=== PATIENT | male | born 1990 | race American Indian/Alaskan Native ===

== ENCOUNTER 2019-06-21 11:39 | Emergency (ER) | payer SELFPAY ==
--- NOTE | 2019-06-21 12:10 | Event Note ---
ED Screening Note Date of service: 06/21/19 Time: 12:06 ED Screening Note: 28 y/o male comes in for left lower back pain that radiates down his left leg yesterday after help moving his mother. Denies any falls. No urinary incontinence or bowel incontinence. This initial assessment/diagnostic orders/clinical plan/treatment(s) is/are subject to change based on patients health status, clinical progression and re- assessment by fellow clinical providers in the ED. Further treatment and workup at subsequent clinical providers discretion. Patient/guardian urged not to elope from the ED as their condition may be serious if not clinically assessed and managed. Initial orders include:
--- NOTE | 2019-06-21 12:56 | XRay Report ---
XR spine lumbosacral 2-3V INDICATION / CLINICAL INFORMATION: lower back pain with radiation down left leg. COMPARISON: None available. FINDINGS: BONES/JOINT(S): No acute vertebral fracture. No significant degenerative changes. Grade 1 spondylolis thesis of L5 on S1 due to chronic bilateral L5 pars defects. Remaining alignment is normal. SOFT TISSUES: No significant abnormality. ADDITIONAL FINDINGS: None. Signer Name: Jordan Rome MD Signed: 06/21/2019 12:52 PM Workstation Name: [id number]
[2019-06-21] MEDS ORDERED: IBUPROFEN 800 MG TAB PO ONE (13:22)
--- NOTE | 2019-06-21 13:22 | Emergency Department Report ---
ED Back Pain/Injury HPI - General Chief Complaint: Back Pain/Injury Stated Complaint: LOWER LT SIDE PAIN/LEG NUMB Time Seen by Provider: 06/21/19 12:05 Source: patient Limitations: No Limitations - History of Present Illness Initial Comments: 28 YO AA MALE WHO LAST NIGHT WHEN HE WAS HELPING HIS MOTHER TRANSFER DEVELOPED SEVERE LEFT SIDED BACK SPASM. TOOK MOTRIN WITH NO RELIEF. COMES TO ER TODAY FOR EVAL. NO DYSURIA. NO FEVER. NO ABD PAIN. AMBULATORY. MD Complaint: back pain -: Sudden, days(s) Similar Symptoms Previously: No Place: home Radiation: none Severity: moderate Quality: aching Improves With: immobilization Worsens With: movement Associated Symptoms: denies other symptoms - Related Data Previous Rx's Medication Instructions Recorded Last Taken Type Cyclobenzaprine [Flexeril] 10 mg PO TID PRN #10 tablet 06/21/19 Unknown Rx predniSONE [Deltasone] 20 mg PO DAILY #5 tablet 06/21/19 Unknown Rx Allergies Allergy/AdvReac Type Severity Reaction Status Date / Time No Known Allergies Allergy Verified 06/21/19 11:52 ED Review of Systems ROS: Stated complaint: LOWER LT SIDE PAIN/LEG NUMB Other details as noted in HPI Comment: All other systems reviewed and negative ED Past Medical Hx - Past Medical History HIV Surgical history: no surgical history Family history: no significant family history - Social History Smoking Status: Never Smoker Alcohol use: rarely Drug use: none ED Back Pain Physical Exam - Exam General: Vital signs noted. No distress. Alert and acting appropriately. Back/Abdomen: Yes Straight Leg Raise Pain, No Abdominal Tenderness, No Perithoracic Tenderness, No Perilumbar Tenderness, No Sacroiliac Tenderness, No Flank Tenderness Neuro: Yes Normal Sensation, Yes Normal DTR's, Yes Normal Gait, No Motor Weakness ED Course Vital Signs 06/21/19 11:50 Temperature 97.6 F Pulse Rate 92 H Respiratory 16 Rate Blood Pressure 124/83 O2 Sat by Pulse 99 Oximetry Ed Back Pain Tests - Tests Tests: Normal X Rays ED Medical Decision Making - Radiology Data Radiology results: report reviewed, image reviewed - Medical Decision Making MEDICATED IN ER FOR PAIN NO URINARY SYMPTOMS PAIN INC WITH MOVEMENT AND DEC WITH IMMOBILIZATION NO FEVER OR CHILLS NO SYMPTOMS CAUDA EQUINA XRAY NEG DC HOME WITH DC PLAN OF CARE AND ORTHO/PCP FOLLOW UP Vital Signs 06/21/19 11:50 Temperature 97.6 F Pulse Rate 92 H Respiratory 16 Rate Blood Pressure 124/83 O2 Sat by Pulse 99 Oximetry - Differential Diagnosis MUSCLE SPASM Critical care attestation.: If time is entered above; I have spent that time in minutes in the direct care of this critically ill patient, excluding procedure time. ED Disposition Clinical Impression: Sciatica, Muscle spasm Disposition: DC-01 TO HOME OR SELFCARE Is pt being admited?: No Does the pt Need Aspirin: No Condition: Stable Instructions: Lumbar Radiculopathy (ED) Additional Instructions: MEDS ORDERED TODAY FOLLOW UP WITH PCP OR DR OSEGUERA (ORTHO MD) IF PERSISTS MOTRIN WITH FOOD IS OK TO TAKE WITH THESE MEDS- IT WILL HELP WITH THE PAIN/INFLAMMATION DO NOT DRIVE WHILE TAKING THE FLEXERIL WARM COMPRESSES TO BACK WILL HELP XRAY NORMAL Prescriptions: predniSONE [Deltasone] 20 mg PO DAILY #5 tablet Cyclobenzaprine [Flexeril] 10 mg PO TID PRN #10 tablet PRN Reason: Muscle Spasm Referrals: NENA OSEGUERA MD [Staff Physician] - 3-5 Days Time of Disposition: 13:25
[2019-06-21] MEDS ORDERED: KETOROLAC 60 MG/2 ML INJ IM ONE (13:24)
[2019-06-21] MEDS ORDERED: dexAMETHasone 4 MG/ML VIAL IM ONE (13:24)
[2019-06-21 14:47] VITALS: BP 137/72
== END 2019-06-21 14:20 | disposition home or self-care (01) ==
LOC: ED 11:39
DX: M54.42 Lumbago with sciatica, left side (principal); Z79.899 Other long term (current) drug therapy
CPT/HCPCS: 72100; 96372; 99283; J1100; J1885

== ENCOUNTER 2019-09-20 14:51 | Emergency (ER) | payer SELFPAY ==
[2019-09-20 15:48] VITALS: BP 132/82
--- NOTE | 2019-09-20 15:50 | Event Note ---
ED Screening Note Date of service: 09/20/19 Time: 15:46 ED Screening Note: This is a 29 y.o. M. that presents to the ER with left testicle enlargement and pain for 2 days. - penile discharge PMH of HIV This initial assessment/diagnostic orders/clinical plan/treatment(s) is/are subject to change based on patients health status, clinical progression and re- assessment by fellow clinical providers in the ED. Further treatment and workup at subsequent clinical providers discretion. Patient/guardian urged not to elope from the ED as their condition may be serious if not clinically assessed and managed. Initial orders include: Testicular US UA
--- NOTE | 2019-09-20 16:54 | Ultrasound Report ---
ULTRASOUND SCROTUM INDICATION / CLINICAL INFORMATION: left testicular enlargement and swelling. COMPARISON: None available. FINDINGS -- RIGHT TESTIS: Size = 4.4 x 1.7 x 2.9 cm. - Appearance: No significant abnormality. - Cyst or Mass: None. - Color Doppler Flow: No significant abnormality. EPIDIDYMIS: No significant abnormality. HYDROCELE: None. VARICOCELE: None demonstrated. FINDINGS -- LEFT TESTIS: Size = 4.3 x 2.6 x 3.2 cm. - Appearance: No significant abnormality. - Cyst or Mass: None. - Color Doppler Flow: No significant abnormality. EPIDIDYMIS: Mildly enlarged and hypervascular compared with the right HYDROCELE: None. VARICOCELE: None demonstrated. ADDITIONAL FINDINGS: None. IMPRESS. ION: 1. Findings suggesting left-sided epididymitis. 2. No acute abnormality of either testicle. Signer Name: Jordan Rome MD Signed: 09/20/2019 4:50 PM Workstation Name: [id number]
[2019-09-20 17:15] LABS: Bacteria,Urine 1+ /HPF (Negative); Bilirubin,Urine NEG (Negative); Blood,Urine MOD (Negative); Color,Urine Yellow (Yellow); Mucus,Urine FEW /HPF; Urobilinogen,Urine < 2.0 mg/dL (<2.0)
[2019-09-20 17:16] LABS: WBC,Urine > 182.0 /HPF (0.0-6.0)
[2019-09-20] MEDS ORDERED: LIDOCAINE-MPF (1%) 10 MG/1 ML VIAL 5 ML INFILTRATI ONE (19:07)
[2019-09-20] MEDS ORDERED: AZITHROMYCIN 250 MG TAB PO ONE (19:07)
--- NOTE | 2019-09-20 20:00 | Emergency Department Report ---
ED Male HPI - General Chief complaint: Urogenital-Male Stated complaint: TESTICLE PAIN Time Seen by Provider: 09/20/19 15:46 Source: patient Mode of arrival: Ambulatory Limitations: No Limitations - History of Present Illness Initial comments: This is a 29 y.o. M. that presents to the ER with left testicle enlargement and pain for 2 days. penile discharge. PMH of HIV. Symptoms are exacerbated by palpation and movment. symptoms are relieved by rest and splint support. There are no open sores or lesions. no fever or chills no n/v. MD Complaint: testicle pain, testicle swelling Onset/Timin -: days(s) Location: left testicle Radiation: none Severity scale (0 -10): 4 Quality: aching Consistency: constant Improves with: none Worsens with: palpation, movement swelling. denies: mass, rash, urinary retention, blood in urine, dysuria, fever, nausea/vomiting, incontinence - Related Data Sexually active: Yes Previous Rx's Medication Instructions Recorded Last Taken Type Cyclobenzaprine [Flexeril] 10 mg PO TID PRN #10 tablet 06/21/19 Unknown Rx predniSONE [Deltasone] 20 mg PO DAILY #5 tablet 06/21/19 Unknown Rx Doxycycline Hyclate [Doxycycline 100 mg PO BID 10 Days #20 tab 09/20/19 Unknown Rx Hyclate TAB] Allergies Allergy/AdvReac Type Severity Reaction Status Date / Time No Known Allergies Allergy Verified 06/21/19 11:52 ED Review of Systems ROS: Stated complaint: TESTICLE PAIN Other details as noted in HPI Constitutional: denies: chills, fever Eyes: denies: eye pain, eye discharge, vision change ENT: denies: ear pain, throat pain Respiratory: denies: cough, shortness of breath, wheezing Cardiovascular: denies: chest pain, palpitations Endocrine: no symptoms reported Gastrointestinal: denies: abdominal pain, nausea, vomiting, diarrhea, melena Genitourinary: testicular pain. denies: urgency, dysuria, frequency, hematuria, testicular mass Musculoskeletal: denies: back pain, joint swelling, arthralgia Skin: denies: rash, lesions Neurological: denies: headache, weakness, paresthesias Psychiatric: denies: anxiety, depression Hematological/Lymphatic: denies: easy bleeding, easy bruising ED Past Medical Hx - Past Medical History Previous Medical History?: Yes Hx HIV: Yes Additional medical history: HIV - Surgical History Past Surgical History?: No - Social History Smoking Status: Current Every Day Smoker Substance Use Type: None - Medications Home Medications: Home Medications Medication Instructions Recorded Confirmed Last Taken Type Cyclobenzaprine [Flexeril] 10 mg PO TID PRN #10 tablet 06/21/19 Unknown Rx predniSONE [Deltasone] 20 mg PO DAILY #5 tablet 06/21/19 Unknown Rx Doxycycline Hyclate [Doxycycline 100 mg PO BID 10 Days #20 tab 09/20/19 Unknown Rx Hyclate TAB] ED Physical Exam - General Limitations: No Limitations General appearance: alert, in no apparent distress - Head Head exam: Present: atraumatic, normocephalic - Eye Eye exam: Present: normal appearance, PERRL, EOMI Pupils: Present: normal accommodation - ENT ENT exam: Present: mucous membranes moist - Neck Neck exam: Present: normal inspection, full ROM. Absent: tenderness - Respiratory Respiratory exam: Absent: wheezes, stridor, chest wall tenderness - Cardiovascular Cardiovascular Exam: Present: regular rate, normal rhythm, normal heart sounds. Absent: systolic murmur, diastolic murmur, rubs, gallop - GI/Abdominal GI/Abdominal exam: Present: soft, normal bowel sounds. Absent: distended, tenderness, guarding, rebound, rigid, bruit, hernia - Rectal Rectal exam: Present: deferred - exam: Present: testicular tenderness (left testical, epididymis tenderness ), circumcision. Absent: urethral discharge, scrotal swelling, vertical t esticular lie External exam: Present: normal external exam. Absent: erythema, swelling, lesions, lacerations, ecchymosis, bleeding - Extremities Exam Extremities exam: Present: normal inspection, full ROM. Absent: tenderness - Back Exam Back exam: Present: normal inspection, full ROM. Absent: tenderness, CVA tenderness (R), CVA tenderness (L), rash noted - Neurological Exam Neurological exam: Present: alert, oriented X3, CN II-XII intact, normal gait - Psychiatric Psychiatric exam: Present: normal affect, normal mood - Skin Skin exam: Present: warm, dry, intact, normal color. Absent: rash ED Course Vital Signs 09/20/19 15:47 Temperature 97.7 F Pulse Rate 92 H Respiratory 16 Rate Blood Pressure 132/82 O2 Sat by Pulse 100 Oximetry ED Medical Decision Making - Radiology Data Radiology results: report reviewed, image reviewed Ordering Physician: PETER BARRIENTOS Date of Service: 09/20/19 Procedure(s): US testicular doppler comp Accession Number(s): [id number] cc: PETER BARRIENTOS ULTRASOUND SCROTUM INDICATION / CLINICAL INFORMATION: left testicular enlargement and swelling. COMPARISON: None available. FINDINGS -- RIGHT TESTIS: Size = 4.4 x 1.7 x 2.9 cm. - Appearance: No significant abnormality. - Cyst or Mass: None. - Color Doppler Flow: No significant abnormality. EPIDIDYMIS: No significant abnormality. HYDROCELE: None. VARICOCELE: None demonstrated. FINDINGS -- LEFT TESTIS: Size = 4.3 x 2.6 x 3.2 cm. - Appearance: No significant abnormality. - Cyst or Mass: None. - Color Doppler Flow: No significant abnormality. EPIDIDYMIS: Mildly enlarged and hypervascular compared with the right HYDROCELE: None. VARICOCELE: None demonstrated. ADDITIONAL FINDINGS: None. IMPRESS. ION: 1. Findings suggesting left-sided epididymitis. 2. No acute abnormality of either testicle. Signer Name: Jordan Rome MD Signed: 09/20/2019 4:50 PM Workstation Name: [id number] Transcribed By: JAMILAH Dictated By: Jordan Rome MD Electronically Authenticated By: Jordan Rome MD Signed Date/Time: 09/20/191649 DD/ 1649 TD/TT: - Medical Decision Making this is epididymitis plan tx for STI, dc to home with rx for doxycycline , pt will follow up with primary care doctor in 2-3 days. pt verbalized agreement and understanding of same. Critical care attestation.: If time is entered above; I have spent that time in minutes in the direct care of this critically ill patient, excluding procedure time. ED Disposition Clinical Impression: Epididymitis Disposition: DC-01 TO HOME OR SELFCARE Is pt being admited?: No Does the pt Need Aspirin: No Condition: Stable Instructions: Epididymitis (ED) Prescriptions: Doxycycline Hyclate [Doxycycline Hyclate TAB] 100 mg PO BID 10 Days #20 tab Referrals: NATALIA MYERS MD [Primary Care Provider] - 3-5 Days Forms: STI Treatment and Prevention Time of Disposition: 20:14
== END 2019-09-20 20:20 | disposition home or self-care (01) ==
LOC: ED 14:51
DX: N45.1 Epididymitis (principal); F17.200 Nicotine dependence, unspecified, uncomplicated
CPT/HCPCS: 81001; 93975; 96372; 99284; J0696

== ENCOUNTER 2020-09-28 09:20 | Emergency (ER) | payer SELFPAY ==
[2020-09-28 09:36] VITALS: BP 143/95
--- NOTE | 2020-09-28 11:33 | Ultrasound Report ---
ULTRASOUND SCROTUM INDICATION: right testicular swelling and pain. COMPARISON Ultrasound 09/20/2019. FINDINGS -- RIGHT TESTIS: Size: 4.1 x 2.5 x 2.4 cm. Echotexture: Normal. Color Doppler Flow: Normal. Lesions: None. EPIDIDYMIS: Size: Mildly enlarged measuring 2 cm. Echotexture: Normal. Color Doppler Flow: Increase d Lesions: None. Hydrocele: There is a new moderate-sized complex right hydrocele. Varicocele: None. Additional Findings: None. FINDINGS -- LEFT TESTIS: Size: 4.4 x 1.9 x 2.8 cm. Echotexture: Normal. Color Doppler Flow: Normal. Lesions: None. EPIDIDYMIS: Size: Normal. Echotexture: Normal. Color Doppler Flow: Normal. Lesions: None. Hydrocele: None. Varicocele: None. Additional Findings: None. IMPRESSION: 1. Previously seen inflammatory change of the left epididymis has resolved. 2. There is new enlargement of and hyperemia of the right epididymis consistent with epididymitis. Th ere is a new moderate somewhat complex right hydrocele which may be reactive related to the epididyma l inflammation. Signer Name: Lamin Oliveros MD Signed: 09/28/2020 11:29 AM Workstation Name: [id number]
[2020-09-28] MEDS ORDERED: AZITHROMYCIN 250 MG TAB PO ONE (12:04)
[2020-09-28] MEDS ORDERED: LIDOCAINE-MPF (1%) 10 MG/1 ML VIAL 5 ML INFILTRATI ONE (12:04)
--- NOTE | 2020-09-28 12:07 | Emergency Department Report ---
HPI - General Chief Complaint: Urogenital-Male Time Seen by Provider: 09/28/20 11:54 - HPI HPI: This is a 30-year-old -[place] male who presents to the emergency department with the complaint of a 2-day history of right-sided scrotal pain and swelling. Patient has a past medical history of HIV. He denies any fever, nausea, vomiting, abdominal pain, back pain. He has not taken anything for his symptoms prior to presentation. No recent travel or sick contacts at home. The patient was seen for the same set of symptoms in September of last year and was found to have left-sided epididymitis at that time. He denies having a primary care physician or urologist. ED Past Medical Hx - Past Medical History Previous Medical History?: Yes Hx HIV: Yes Additional medical history: HIV - Surgical History Past Surgical History?: No - Social History Smoking Status: Current Every Day Smoker Substance Use Type: Alcohol - Medications Home Medications: Home Medications Medication Instructions Recorded Confirmed Last Taken Type Cyclobenzaprine [Flexeril] 10 mg PO TID PRN #10 tablet 06/21/19 Unknown Rx predniSONE [Deltasone] 20 mg PO DAILY #5 tablet 06/21/19 Unknown Rx Doxycycline Hyclate [Doxycycline 100 mg PO BID 10 Days #20 tab 09/20/19 Unknown Rx Hyclate TAB] Ciprofloxacin HCl [Ciprofloxacin 500 mg PO Q12HR #20 tab 09/28/20 Unknown Rx TAB] HYDROcodone/APAP 5-325 [[place] 1 each PO Q6HR PRN #10 tablet 09/28/20 Unknown Rx 5/325] ED Review of Systems ROS: Stated complaint: GROIN PAIN Other details as noted in HPI Comment: All other systems reviewed and negative Constitutional: denies: chills, fever Eyes: denies: eye pain, vision change ENT: denies: ear pain, throat pain Respiratory: denies: cough, shortness of breath Cardiovascular: denies: chest pain, palpitations Gastrointestinal: denies: abdominal pain, vomiting Genitourinary: testicular pain. denies: dysuria Musculoskeletal: denies: back pain, arthralgia Skin: denies: rash, lesions Neurological: denies: headache, weakness Physical Exam - Physical Exam Vital Signs: Vital Signs 09/28/20 09/28/20 09:34 09:35 Temperature 97.8 F Pulse Rate 99 H Respiratory 20 Rate Blood Pressure 143/95 [Right] O2 Sat by Pulse 100 Oximetry Physical Exam: GENERAL: The patient is well-developed well-nourished. HENT: Normocephalic. Atraumatic. Patient has moist mucous membranes. EYES: Extraocular motions are intact. NECK: Supple. Trachea is midline. CHEST/LUNGS: Clear to auscultation. There is no respiratory distress noted. HEART/CARDIOVASCULAR: Regular. There is no tachycardia. There is no murmur. ABDOMEN: Abdomen is soft, nontender. Patient has normal bowel sounds. SKIN: Skin is warm and dry. NEURO: The patient is awake, alert, and oriented. The patient is cooperative. Normal speech. MUSCULOSKELETAL: There is no tenderness or deformity. There is no limitation range of motion. : The right side of the scrotum and right testicle appears swollen/enlarged. There is right-sided scrotal and testicular tenderness to palpation. No rash or lesions seen. ED Course Vital Signs 09/28/20 09/28/20 09:34 09:35 Temperature 97.8 F Pulse Rate 99 H Respiratory 20 Rate Blood Pressure 143/95 [Right] O2 Sat by Pulse 100 Oximetry ED Medical Decision Making - Radiology Data Radiology results: report reviewed ULTRASOUND SCROTUM INDICATION: right testicular swelling and pain. COMPARISON Ultrasound 09/20/2019. FINDINGS -- RIGHT TESTIS: Size: 4.1 x 2.5 x 2.4 cm. Echotexture: Normal. Color Doppler Flow: Normal. Lesions: None. EPIDIDYMIS: Size: Mildly enlarged measuring 2 cm. Echotexture: Normal. Color Doppler Flow: Increased Lesions: None. Hydrocele: There is a new moderate-sized complex right hydrocele. Varicocele: None. Additional Findings: None. FINDINGS -- LEFT TESTIS: Size: 4.4 x 1.9 x 2.8 cm. Echotexture: Normal. Color Doppler Flow: Normal. Lesions: None. EPIDIDYMIS: Size: Normal. Echotexture: Normal. Color Doppler Flow: Normal. Lesions: None. Hydrocele: None. Varicocele: None. Additional Findings: None. IMPRESSION: 1. Previously seen inflammatory change of the left epididymis has resolved. 2. There is new enlargement of and hyperemia of the right epididymis consistent with epididymitis. There is a new moderate somewhat complex right hydrocele which may be reactive related to the epididymal inflammation. - Medical Decision Making This patient presents with a 2-day history of right-sided scrotal and testicular pain and swelling. Testicular ultrasound does not show any evidence of torsion, but does show right-sided epididymitis with a moderate complex hydrocele. The patient does admit to engaging in anal intercourse. Patient was given Rocephin 500 mg IM to treat/cover for possible gonorrhea infection. The patient was given 1 g of azithromycin to treat for possible chlamydial infection. The patient will go on a 10-day course of Cipro, a fluoroquinolone, to treat for an infection of possible enteric organism secondary to his history of engaging in anal intercourse. Vital signs have been reassuring throughout his ED course including being afebrile. He has been instructed to follow-up with a primary care physician and has been given an outpatient referral for urology. Critical Care Time: No Critical care attestation.: If time is entered above; I have spent that time in minutes in the direct care of this critically ill patient, excluding procedure time. ED Disposition Clinical Impression: Epididymitis, Epididymal cyst Disposition: TO HOME OR SELFCARE Is pt being admited?: No Condition: Stable Instructions: Epididymitis, Epididymitis (ED) Additional Instructions: Please follow-up with a primary care physician in the next few days. I have given you a referral for a local urologist, Dr. Cunha, to follow-up regarding your epididymitis, epididymal cyst, and the scrotal pain and swelling. Take the antibiotics as prescribed. Please avoid any sexual intercourse or activities until you have completed the antibiotics and followed up with Urology. You have been prescribed a medication that is sedating and therefore should not be taken prior to driving, working, and responsible for children and in no way should be mixed with alcohol of any quantity. Return to the emergency department with any worsening of your symptoms, new or concerning symptoms not addressed during this current emergency department visit, or with any acute distress. Prescriptions: Ciprofloxacin HCl [Ciprofloxacin TAB] 500 mg PO Q12HR #20 tab HYDROcodone/APAP 5-325 [[place] 5/325] 1 each PO Q6HR PRN #10 tablet PRN Reason: Pain Referrals: PRIMARY CARE, [Primary Care Provider] - 2-3 Days LINO CUNHA MD [Staff Physician] - 2-3 Days Forms: STI Treatment and Prevention Time of Disposition: 12:46
--- NOTE | 2020-09-28 19:00 | Event Note ---
ED Screening Note Date of service: 09/28/20 Time: 10:12 ED Screening Note: This initial assessment/diagnostic orders/clinical plan/treatment(s) is/are subject to change based on patients health status, clinical progression and re- assessment by fellow clinical providers in the ED. Further treatment and workup at subsequent clinical providers discretion. Patient/guardian urged not to elope from the ED as their condition may be serious if not clinically assessed and managed. Initial orders include: 30-year-old male complaining of right scrotal swelling and pain x2 days. He denies any urinary symptoms he denies any penile discharge. He does have a history of HIV and states that he is compliant with taking his antivirals.
== END 2020-09-28 13:11 | disposition home or self-care (01) ==
LOC: ED 09:20
DX: N50.3 Cyst of epididymis (principal); N45.1 Epididymitis; F17.200 Nicotine dependence, unspecified, uncomplicated; Z79.899 Other long term (current) drug therapy; Z21 Asymptomatic human immunodeficiency virus [HIV] infection status
CPT/HCPCS: 93975; 96372; 99283; J0696

== ENCOUNTER 2021-08-13 10:56 | Emergency (ER) | payer SELFPAY ==
[2021-08-13 11:11] VITALS: BP 145/93
--- NOTE | 2021-08-13 11:25 | Emergency Department Report ---
ED General Adult HPI - General Chief complaint: Skin Rash Stated complaint: RIGHT EYE SWELLING Time Seen by Provider: 08/13/21 11:13 Source: patient Mode of arrival: Ambulatory Limitations: No Limitations - History of Present Illness Initial comments: This pleasant 30-year-old male who presents emergency department chief complaint of a itchy rash on the right side of his nose, forehead, temporal area and parietal scalp that has been present over the past few days. He has past medical history of HIV and is currently on antiretroviral medications. He states he has some clear drainage from the right eye and some mild irritation. He denies any associated fever, chills, night sweats, headache, dizziness, blurry vision, nausea,, diarrhea, chest pain, shortness of breath, weakness or any other associated symptoms. - Related Data Previous Rx's Medication Instructions Recorded Last Taken Type Cyclobenzaprine [Flexeril] 10 mg PO TID PRN #10 tablet 06/21/19 Unknown Rx predniSONE [Deltasone] 20 mg PO DAILY #5 tablet 06/21/19 Unknown Rx Doxycycline Hyclate [Doxycycline 100 mg PO BID 10 Days #20 tab 09/20/19 Unknown Rx Hyclate TAB] Ciprofloxacin HCl [Ciprofloxacin 500 mg PO Q12HR #20 tab 09/28/20 Unknown Rx TAB] HYDROcodone/APAP 5-325 [[place] 1 each PO Q6HR PRN #10 tablet 09/28/20 Unknown Rx 5/325] Ganciclovir [Zirgan 0.15%] 1 drop OP 5XD #1 gel..gram. 08/13/21 Unknown Rx Valacyclovir HCl [Valtrex] 1,000 mg PO TID #30 tablet 08/13/21 Unknown Rx predniSONE [Deltasone] 50 mg PO QDAY #5 tab 08/13/21 Unknown Rx Allergies Allergy/AdvReac Type Severity Reaction Status Date / Time No Known Allergies Allergy Verified 06/21/19 11:52 ED Review of Systems ROS: Stated complaint: RIGHT EYE SWELLING Other details as noted in HPI Comment: All other systems reviewed and negative Constitutional: denies: chills, fever Eyes: as per HPI, eye discharge. denies: eye pain, vision change ENT: denies: ear pain, throat pain Respiratory: denies: cough, shortness of breath, wheezing Cardiovascular: denies: chest pain, palpitations Endocrine: no symptoms reported Gastrointestinal: denies: abdominal pain, nausea, diarrhea Genitourinary: denies: urgency, dysuria Musculoskeletal: denies: back pain, joint swelling, arthralgia Skin: as per HPI, rash, lesions Neurological: denies: headache, weakness, paresthesias Psychiatric: denies: anxiety, depression Hematological/Lymphatic: denies: easy bleeding, easy bruising ED Past Medical Hx - Past Medical History Previous Medical History?: Yes Hx HIV: Yes Additional medical history: HIV - Social History Smoking Status: Current Every Day Smoker Substance Use Type: Alcohol - Medications Home Medications: Home Medications Medication Instructions Recorded Confirmed Last Taken Type Cyclobenzaprine [Flexeril] 10 mg PO TID PRN #10 tablet 06/21/19 Unknown Rx predniSONE [Deltasone] 20 mg PO DAILY #5 tablet 06/21/19 Unknown Rx Doxycycline Hyclate [Doxycycline 100 mg PO BID 10 Days #20 tab 09/20/19 Unknown Rx Hyclate TAB] Ciprofloxacin HCl [Ciprofloxacin 500 mg PO Q12HR #20 tab 09/28/20 Unknown Rx TAB] HYDROcodone/APAP 5-325 [[place] 1 each PO Q6HR PRN #10 tablet 09/28/20 Unknown Rx 5/325] Ganciclovir [Zirgan 0.15%] 1 drop OP 5XD #1 gel..gram. 08/13/21 Unknown Rx Valacyclovir HCl [Valtrex] 1,000 mg PO TID #30 tablet 08/13/21 Unknown Rx predniSONE [Deltasone] 50 mg PO QDAY #5 tab 08/13/21 Unknown Rx ED Physical Exam - General Limitations: No Limitations General appearance: alert, in no apparent distress - Head Head exam: Present: atraumatic, normocephalic - Eye Eye exam: Present: PERRL, EOMI, conjunctival injection - ENT ENT exam: Present: normal exam, normal orophraynx, mucous membranes moist - Neck Neck exam: Present: normal inspection, full ROM. Absent: tenderness, meni ngismus - Respiratory Respiratory exam: Present: normal lung sounds bilaterally. Absent: respiratory distress, wheezes, rales, rhonchi, stridor - Cardiovascular Cardiovascular Exam: Present: regular rate, normal rhythm. Absent: systolic murmur, diastolic murmur, rubs, gallop - GI/Abdominal GI/Abdominal exam: Present: soft, normal bowel sounds - Rectal Rectal exam: Present: deferred - Extremities Exam Extremities exam: Present: normal inspection, full ROM, normal capillary refill. Absent: tenderness, calf tenderness - Back Exam Back exam: Present: normal inspection, full ROM. Absent: tenderness, CVA tenderness (R), CVA tenderness (L) - Neurological Exam Neurological exam: Present: alert, oriented X3, CN II-XII intact - Psychiatric Psychiatric exam: Present: normal affect, normal mood - Skin Skin exam: Present: warm, dry, intact, normal color, rash (There are multiple grouped vesicles on erythematous base to the right side of the nose, right temporal scalp, right parietal scalp and forehead.) ED Course Vital Signs 08/13/21 11:10 Temperature 97.9 F Pulse Rate 113 H Respiratory 16 Rate Blood Pressure 145/93 [Right] O2 Sat by Pulse 98 Oximetry - Reevaluation(s) Reevaluation #1: 08/13/21 11:26 Educated the patient that his rash is very consistent with shingles and recommended antiretrovirals with steroids and I ointment. I educated him that he was at a much higher risk for herpetic keratitis of the right eye and this could lead to scarring and even blindness and it is vitally important that he follows up with ophthalmology to avoid this. He verbalized understand these instructions and will follow up. I will give him close follow-up and return precautions any change or worsening symptoms. Did also recommend that he follow back up with his infectious disease doctor which he reports he has an appointment coming up and he has plenty of his antiretroviral medications. He denies any systemic symptoms and otherwise is well-appearing. - Consultations Consultation #1: 08/13/21 12:[address] Alexandro Vargas ophthalmology who recommended oral steroids, oral antiviral's, zirgan topical and follow up with [facility]. ED Medical Decision Making - Medical Decision Making Patient nontoxic no acute distress. Spoke with eye doctor regarding the concern for possible shingles involvement of the eye and recommendations were given. Patient be sent home with prednisone, Valtrex and prescription for Zirgan as recommended. Patient be given ophthalmology follow-up recommend they call today for follow-up appointment. He understood the importance of seeing them that this could be risk of vision loss if not followed up appropriately. He verbalized understand the diagnosis, treatment and follow-up instructions all his questions were answered. - Differential Diagnosis Shingles, cellulitis, conjunctivitis Critical care attestation.: If time is entered above; I have spent that time in minutes in the direct care of this critically ill patient, excluding procedure time. ED Disposition Clinical Impression: Shingles Qualifiers: Herpes zoster complications: with ocular involvement Herpes zoster ocular complication detail: unspecified herpes zoster eye disease Qualified Code(s): B02.30 - Zoster ocular disease, unspecified Disposition: 01 HOME / SELF CARE / HOMELESS Is pt being admited?: No Condition: Stable Additional Instructions: Go to [email or web address] to download coupon for savings on Zirgan medication Prescriptions: predniSONE [Deltasone] 50 mg PO QDAY #5 tab Valacyclovir HCl [Valtrex] 1,000 mg PO TID #30 tablet Ganciclovir [Zirgan 0.15%] 1 drop OP 5XD #1 gel..gram. Referrals: PRIMARY [facility] [Primary Care Provider] - 3-[address] [facility] [Provider Group] - 3-5 Days Time of Disposition: 12:44
[2021-08-13] MEDS ORDERED: FLUORESCEIN 1 MG STRIP OP ONE (11:29)
[2021-08-13] MEDS ORDERED: TETRACAINE 0.5% OPHTH SOLN 4ML OU ONE (11:30)
== END 2021-08-13 12:52 | disposition home or self-care (01) ==
LOC: ED 10:56
DX: B02.30 Zoster ocular disease, unspecified (principal); F17.200 Nicotine dependence, unspecified, uncomplicated; F10.20 Alcohol dependence, uncomplicated
CPT/HCPCS: 99282